=== PATIENT | female | born 1980 | race Caucasian/White ===

== ENCOUNTER 2017-05-12 07:42 | Emergency (ER) | payer BC ==
[2017-05-12 07:47] VITALS: BP 128/80
--- NOTE | 2017-05-12 08:08 | ER Document Report ---
HPI - HPI Patient complains to provider of: swollen lip Onset: Yesterday Onset/Duration: Gradual Pain Level: 3 Context: 36-year-old female complaining of right sided facial sinus pressure and pain with postnasal drip and upper lip swelling started yesterday. She has had a recent upper respiratory infection. She saw an allergy about this lip swelling that has occurred intermittently since December. She takes Benadryl and Zantac. No chest tightness or wheezing. Associated Symptoms: None Exacerbated by: Denies Relieved by: Denies Similar symptoms previously: Yes Recently seen / treated by doctor: Yes - ROS ROS below otherwise negative: Yes Systems Reviewed and Negative: Yes All other systems reviewed and negative - REPRODUCTIVE Reproductive: DENIES: : - DERM Skin Color: Normal Past Medical History - General Information source: Patient - Social History Smoking Status: Current Every Day Smoker Frequency of alcohol use: None Drug Abuse: None Lives with: Family Family History: Reviewed & Not Pertinent Renal/ Medical History: Denies: Hx Peritoneal Dialysis Psychiatric Medical History: Reports: Hx Anxiety, Hx Depression Surgical Hx: Negative - Immunizations Hx Diphtheria, Pertussis, Tetanus Vaccination: No Vertical Provider Document - CONSTITUTIONAL Agree With Documented VS: Yes Exam Limitations: No Limitations - INFECTION CONTROL TRAVEL OUTSIDE OF THE [place] IN LAST 30 DAYS: No - HEENT HEENT: Normocephalic. negative: Conjuctival Injection, Pharyngeal Erythema, Tympanic Membrane Red Notes: upper lip with swelling, no dental decay or abscess - NECK Neck: Supple. negative: Lymphadenopathy-Left, Lymphadenopathy-Right - RESPIRATORY Respiratory: Breath Sounds Normal, No Respiratory Distress O2 Sat by Pulse Oximetry: 100 - CARDIOVASCULAR Cardiovascular: Regular Rate, Regular Rhythm - NEURO Level of Consciousness: Awake, Alert - DERM Integumentary: Warm, Dry, No Rash Course - Vital Signs Vital signs: Temp Pulse Resp BP Pulse Ox 98.2 F 77 18 128/80 H 100 05/12/17 07:45 05/12/17 07:45 05/12/17 07:45 05/12/17 07:45 05/12/17 07:45 Discharge - Discharge Clinical Impression: Angioedema Qualifiers: Encounter type: initial encounter Qualified Code(s): T78.3XXA - Angioneurotic edema, initial encounter Sinusitis Qualifiers: Sinusitis location: unspecified location Chronicity: acute Recurrence: non- recurrent Qualified Code(s): J01.90 - Acute sinusitis, unspecified Condition: Good Disposition: HOME, SELF-CARE Instructions: Angioedema ([facility]), Augmentin ([facility]), Use of Diphenhydramine, Sinusitis ([facility]), Stop Smoking ([facility]), Steroid Medication Additional Instructions: see the certified retinal angiographer if this persists stop smoking take 25-50mg benadryl every 4-6 hours for the sweling continue the zantac 150mg twice a day this week finish the prednisone Please complete the patient satisfaction survey if you get one, and return it.. If you do not receive a survey, then you can go to the [facility] website, [email or web address] and place your comments about your very good care. Thank you very much. It was a pleasure being your medical provider today. Prescriptions: Amoxicillin/Potassium Clav [Augmentin 875-125 Tablet] 1 each PO BID #14 tablet Prednisone [Deltasone 10 mg Tablet] 10 mg PO ASDIR PRN #21 tablet PRN Reason: Forms: Return to Work
[2017-05-12] MEDS ORDERED: PREDNISONE 20 MG TABLET PO ONE (08:23)
[2017-05-12] MEDS ORDERED: DIPHENHYDRAMINE HCL 50 MG CAPSULE PO ONE (08:25)
== END 2017-05-12 08:33 | disposition home or self-care (01) ==
LOC: ER 07:42
DX: T78.3XXA Angioneurotic edema, initial encounter (principal); J01.90 Acute sinusitis, unspecified; R22.0 Localized swelling, mass and lump, head; R51 Headache; F17.200 Nicotine dependence, unspecified, uncomplicated
CPT/HCPCS: 99283; J7512

== ENCOUNTER 2020-03-30 14:59 | Emergency (ER) | payer BC ==
--- NOTE | 2020-03-30 15:24 | ER Document Report ---
ED Medical Screen (RME) - General Chief Complaint: Palpitations Stated Complaint: FEELS LIKE CHEST IS "FLUTTERING" Time Seen by Provider: 03/30/20 15:12 TRAVEL OUTSIDE OF THE [place] IN LAST 30 DAYS: No - HPI Notes: 03/30/20 15:22 39-year-old female presents emergency room with fluttering in her chest with lightheadedness and dizziness that started yesterday. States she had 2 episodes yesterday and 2 episodes today, states they last for couple minutes and then go away. Reports she does have some shortness of breath when these episodes are occurring as well as blurred vision. Patient denies any cardiac history. She was a former smoker. Reports that her father does have A. fib, unsure of her mother. No new medications foods or travel. Patient has not had any surgeries besides having an ovarian cyst removed 20 years ago. Patient has not any blood thinners. Denies any fevers chills, nausea vomiting diarrhea. Patient had an EKG done today and states she was not having the episode when the EKG was taken I have greeted and performed a rapid initial assessment of this patient. A comprehensive ED assessment and evaluation of the patient, analysis of test results and completion of the medical decision making process will be conducted by additional ED providers. PHYSICAL EXAMINATION: GENERAL: Well-appearing, well-nourished and in no acute distress. HEAD: Atraumatic, normocephalic. EYES: Pupils equal round extraocular movements intact, conjunctiva are normal. NECK: Normal range of motion CV: s1, s2 regular LUNGS: No respiratory distress - Related Data Allergies/Adverse Reactions: No Known Allergies Allergy (Verified 05/12/17 07:47) Past Medical History - Social History Frequency of alcohol use: Occasional Drug Abuse: None Renal/ Medical History: Denies: Hx Peritoneal Dialysis Psychiatric Medical History: Reports: Hx Anxiety, Hx Depression - Immunizations Hx Diphtheria, Pertussis, Tetanus Vaccination: No Physical Exam - Vital signs Vitals: Temp Pulse Resp BP Pulse Ox 98.9 F 61 16 139/78 H 97 03/30/20 15:02 03/30/20 15:02 03/30/20 15:02 03/30/20 15:02 03/30/20 15:02 Course - Vital Signs Vital signs: Temp Pulse Resp BP Pulse Ox 98.9 F 61 16 139/78 H 97 08/11/20 15:02 03/30/20 15:02 03/30/20 15:02 03/30/20 15:02 03/30/20 15:02
[2020-03-30 15:45] LABS: ABSOLUTE EOSINOPHILS # (AUTO) 0.2 10^3/uL (0.0-0.6); ABSOLUTE LYMPHOCYTES (AUTO) 2.4 10^3/uL (0.5-4.7); ABSOLUTE MONOCYTES (AUTO) 0.4 10^3/uL (0.1-1.4); ABSOLUTE NEUT (AUTO) 3.4 10^3/uL (1.7-8.2); BASOPHILS % (AUTO) 0.8 % (0-2); EOSINOPHILS % (AUTO) 2.7 % (0-6); HEMATOCRIT 40.2 % (36.0-47.0); LYMPHOCYTES % (AUTO) 37.6 % (13-45); MEAN CORPUSCULAR HEMOGLOBIN 31.8 pg (27.0-33.4); MEAN CORPUSCULAR HGB CONC 34.9 g/dL (32.0-36.0); MEAN CORPUSCULAR VOLUME 91 fl (80-97); MONOCYTES % (AUTO) 6.6 % (3-13); PLATELET COUNT 228 10^3/uL (150-450); RED BLOOD COUNT 4.41 10^6/uL (3.72-5.28); RED CELL DISTRIBUTION WIDTH 12.5 % (11.5-14.0); SEGMENTED NEUTROPHILS % (AUTO) 52.3 % (42-78); TOTAL CELLS COUNTED % (AUTO) 100 %; WHITE BLOOD COUNT 6.4 10^3/uL (4.0-10.5)
--- NOTE | 2020-03-30 15:59 | RADIOLOGY REPORT (SQ) ---
EXAM DESCRIPTION: CHEST 2 VIEWS IMAGES COMPLETED DATE/TIME: 03/30/2020 3:41 pm REASON FOR STUDY: chest pain, arrythmia COMPARISON: None. EXAM PARAMETERS: NUMBER OF VIEWS: two views TECHNIQUE: Digital Frontal and Lateral radiographic views of the chest acquired. RADIATION DOSE: NA LIMITATIONS: none FINDINGS: LUNGS AND PLEURA: No opacities, masses or pneumothorax. No pleural effusion. MEDIASTINUM AND HILAR STRUCTURES: No masses or contour abnormalities. HEART AND VASCULAR STRUCTURES: Heart normal size. No evidence for failure. BONES: No acute findings. HARDWARE: None in the chest. OTHER: No other significant finding. IMPRESSION: NO ACUTE RADIOGRAPHIC FINDING IN THE CHEST. TECHNICAL DOCUMENTATION: JOB ID: [id number] [employer]- All Rights Reserved Reading location - IP/workstation name: [email or web address]
[2020-03-30 16:02] LABS: ALBUMIN 4.2 g/dL (3.5-5.0); ALKALINE PHOSPHATASE 50 U/L (38-126); ASPARTATE AMINO TRANSFERASE 20 U/L (14-36); BILIRUBIN,TOTAL 0.6 mg/dL (0.2-1.3); BLOOD UREA NITROGEN 11 mg/dL (7-20); CALCIUM 8.9 mg/dL (8.4-10.2); CARBON DIOXIDE 30 mmol/L (22-30); CREATINE KINASE 53 U/L (30-135); GLUCOSE 89 mg/dL (75-110); POTASSIUM 4.7 mmol/L (3.6-5.0); TOTAL PROTEIN 7.2 g/dL (6.3-8.2)
[2020-03-30 16:09] LABS: CHLORIDE 103 mmol/L (98-107)
[2020-03-30 16:10] LABS: ANION GAP 4 (5-19)
[2020-03-30 16:15] LABS: CREATINE KINASE MB < 0.22 ng/mL (<4.55); TROPONIN I < 0.012 ng/mL
--- NOTE | 2020-03-30 17:24 | ER Document Report ---
ED Cardiac - General Chief Complaint: Palpitations Stated Complaint: FEELS LIKE CHEST IS "FLUTTERING" Time Seen by Provider: 03/30/20 15:12 Primary Care Provider: MARILU CRUZ MD [NO LOCAL MD] - Follow up in 3-5 days CHARLI METZGER MD [Primary Care Provider] - Follow up in 3-5 days Notes: Patient is a 39-year-old female who presents the emergency department with a chief complaint of a fluttering feeling in her chest. Patient states that she did have this feeling yesterday and then around 11:00 this morning she had it again. Patient states that she sometimes feels lightheaded and dizzy. Denies any past medical history. She does not take any medications. Patient's father has a history of atrial fibrillation. Patient states that she has an IUD in. TRAVEL OUTSIDE OF THE [place] IN LAST 30 DAYS: No - Related Data Allergies/Adverse Reactions: No Known Allergies Allergy (Verified 05/12/17 07:47) Past Medical History - Social History Smoking Status: Former Smoker Frequency of alcohol use: Occasional Drug Abuse: None Family History: Reviewed & Not Pertinent Renal/ Medical History: Denies: Hx Peritoneal Dialysis Psychiatric Medical History: Reports: Hx Anxiety, Hx Depression - Immunizations Hx Diphtheria, Pertussis, Tetanus Vaccination: No Review of Systems - Review of Systems Notes: REVIEW OF SYSTEMS: CONSTITUTIONAL : Denies recent illness. Denies recent unintentional weight loss. Denies fever, chills, or sweats. EENT: Denies eye, ear, throat, or mouth pain, discharge, or symptoms. Denies nasal or sinus congestion. CARDIOVASCULAR: See HPI. RESPIRATORY: Denies shortness of breath, cough, congestion, difficulty br eathing, or wheezing. GASTROINTESTINAL: Denies nausea, vomiting, and diarrhea. Denies abdominal pain. Denies constipation. GENITOURINARY: Denies difficulty urinating, burning, blood in urine, urgency or frequency. MUSCULOSKELETAL: Denies neck and back pain. Denies joint pain or swelling. SKIN: Denies rash, itchiness, or lesions HEMATOLOGIC : Denies easy bruising or bleeding. LYMPHATIC: Denies swollen, painful, enlarged glands. NEUROLOGICAL: Denies no numbness or tingling denies weakness. Denies headache. Denies altered mental status. Denies alteration in speech. PSYCHIATRIC: Denies stress, anxiety, alteration in sleep patterns, or depression. All other systems reviewed and negative. Physical Exam - Vital signs Vitals: Temp Pulse Resp BP Pulse Ox 98.9 F 61 16 139/78 H 97 03/30/20 15:02 03/30/20 15:02 03/30/20 15:02 03/30/20 15:02 03/30/20 15:02 - Notes Notes: PHYSICAL EXAMINATION: GENERAL: Appears well, healthy, well-nourished, no acute distress. HEAD: Normocephalic, atraumatic. EYES: PERRL, conjunctiva normal, all extraocular movements intact, sclera nonicteric ENT: Moist mucous membranes. NECK: Supple, no noticeable swelling, redness, rash. Normal range of motion. LUNGS: Equal breath sounds bilaterally and clear to auscultation. No wheezes rales or rhonchi. CARDIOVASCULAR: S1-S2, regular rate, regular rhythm. Radial pulses 2+, normal. ABDOMEN: Normoactive bowel sounds. Soft, nontender, no guarding, no rebound tenderness, and no masses palpated. EXTREMITIES: Normal strength and range of motion, no pitting or edema. No cyanosis. NEUROLOGICAL: Moves all extremities upon command. Strength 5/5 in all ex tremities. PSYCH: Normal mood, normal affect. SKIN: Warm, dry. No rash, lesions, ulcerations noted. Normal skin turgor. Course - Re-evaluation Re-evalutation: 03/30/20 17:24 Hematology is unremarkable. No anemia or leukocytosis noted. Chemistries are grossly unremarkable also. CK is unremarkable. Troponin is negative. Liver function tests are also normal. I added a d-dimer and lipase. Will reevaluate patient. Second troponin pending. 03/30/20 20:06 second troponin is unremarkable. D-dimer is also unremarkable. Patient states that she goes to [facility], but has not seen a primary care here in [place]. Advised her to follow-up with a manager social work there. She is in agreement with this plan. Follow-up precautions were given. Verbal discharge instructions were given to the patient. They verbalized understanding. They are stable for discharge. - Vital Signs Vital signs: Temp Pulse Resp BP Pulse Ox 98.9 F 62 18 121/71 98 03/30/20 15:02 03/30/20 18:48 03/30/20 18:48 03/30/20 18:48 03/30/20 18:48 - Laboratory Result Diagrams: 03/30/20 15:31 03/30/20 15:31 Laboratory results interpreted by me: 03/30/20 03/30/20 15:31 16:00 Anion Gap 4 L Urine Urobilinogen 4.0 H - EKG Interpretation by Me Additional EKG results interpreted by me: 03/30/20 17:30 Sinus bradycardia. Rate 59. IA 132; QRS 90; QT 400; QTc 397. No ST elevations or depressions noted. Discharge - Discharge Clinical Impression: Palpitations Condition: Stable Disposition: HOME, SELF-CARE Additional Instructions: You were seen today in the emergency department and your evaluation is reassuring. Please follow-up with cardiology and a primary care provider. If you develop shortness of breath, difficulty breathing, or worsening symptoms, return to the emergency department. Forms: Return to Work Referrals: CHARLI METZGER MD [Primary Care Provider] - Follow up in 3-5 days MARILU CRUZ MD [NO LOCAL MD] - Follow up in 3-5 days
[2020-03-30 17:43] LABS: APPEARANCE,URINE CLEAR; BILIRUBIN,URINE NEGATIVE (NEGATIVE); COLOR,URINE YELLOW; GLUCOSE, URINE NEGATIVE (NEGATIVE); KETONES,URINE NEGATIVE (NEGATIVE); PROTEIN,URINE NEGATIVE (NEGATIVE)
--- NOTE | 2020-03-30 19:30 | EKG REPORT ---
SEVERITY:- BORDERLINE ECG - SINUS BRADYCARDIA : Confirmed by: Bob Torres MD 30-Mar-2020 19:29:45
[2020-03-30 20:23] VITALS: BP 119/107
== END 2020-03-30 20:27 | disposition home or self-care (01) ==
LOC: ER 14:59
DX: R00.2 Palpitations (principal); R42 Dizziness and giddiness; Z82.49 Family history of ischemic heart disease and other diseases of the circulatory system; Z87.891 Personal history of nicotine dependence; Z97.5 Presence of (intrauterine) contraceptive device
CPT/HCPCS: 36415; 71046; 80053; 81001; 82550; 82553; 83690; 83735; 84484; 85025; 85379; 93005; 93010; 99285